=== PATIENT | female | born 1935 | race Caucasian/White ===

== ENCOUNTER → 2016-12-22 | Outpatient (CLI) | payer MEDICARE, BC ==
[~2016-12-22] MED LIST: ARMOUR THYROID90 MG; FLAGYL 250250 MG/TAB PO; LEVAQUIN 5500 MG/TA1 PO; PROTONIX40 MG/Pack PO
== END ==
LOC: MC.RAD 13:18
DX: Z12.31 Encounter for screening mammogram for malignant neoplasm of breast (principal)